=== PATIENT | female | born 2000 | race African-American/Black ===

== ENCOUNTER 2024-04-22 16:19 | Emergency (ER) | payer SELFPAY ==
[~2024-04-22] VITALS: Ht 170.2 cm; Wt 68.0 kg
[2024-04-22 16:34] VITALS: BP 142/94; PULSE 100; RESP 16; O2SAT 100
[2024-04-22] MEDS ORDERED: ONDANSETRON 4MG ODT PO ONE (17:00)
[2024-04-22 17:28] LABS: BASOPHILS % 0.2 % (0.0-2.0); HEMATOCRIT. 43.2 % (36.0-48.0); HEMOGLOBIN. 14.4 g/dL (12.0-16.0); LYMPHOCYTES % 15.5 % (20.0-50.0); MEAN CORPUSCULAR HEMOGLOBIN 29.8 pg (28.0-32.0); MEAN CORPUSCULAR HGB CONC 33.5 g/dL (31.0-37.0); MEAN CORPUSCULAR VOLUME 89.2 fL (81.0-99.0); MEAN PLATELET VOLUME 8.1 fl (7.4-10.4); MONOCYTES % 6.8 % (2.0-8.0); NEUTROPHILS % 77.5 % (40.0-76.0); PLATELET 310 x1000/uL (130-400); RED BLOOD CELL COUNT 4.84 mill/uL (4.2-5.4); RED CELL DISTRIBUTION WIDTH 13.4 % (11.6-14.6)
[2024-04-22 17:35] LABS: CHLORIDE 107 mEq/L (98-107); POTASSIUM 2.9 mEq/L (3.5-5.1); SODIUM 140 mEq/L (136-145)
[2024-04-22 17:36] LABS: CARBON DIOXIDE 16 mEq/L (21-32)
[2024-04-22 17:37] LABS: CALCIUM 10.9 mg/dL (8.7-10.4)
[2024-04-22 17:40] LABS: HCG SCREEN NEGATIVE
[2024-04-22 17:41] LABS: CREATININE 1.1 mg/dL (0.6-1.0); GLUCOSE 99 mg/dL (70-105)
[2024-04-22 17:42] LABS: UREA NITROGEN BLOOD 14 mg/dL (9-23)
[2024-04-22 17:43] LABS: ALANINE AMINOTRANSFERASE 25 IU/L (10-49); ALBUMIN 5.4 g/dL (3.2-4.8); ASPARTATE AMINOTRANSFERASE 39 IU/L (<34)
[2024-04-22 17:44] LABS: BILIRUBIN DIRECT 0.4 mg/dL (<=3.0); BILIRUBIN TOTAL 1.3 mg/dL (0.1-1.0); PROTEIN TOTAL 8.6 g/dL (6.0-8.3)
== END 2024-04-22 17:49 | disposition left against medical advice (07) ==
LOC: ER 16:19
DX: R11.2 Nausea with vomiting, unspecified (principal); R10.13 Epigastric pain
CPT/HCPCS: 99283; 80076; 80048; 84703; 83690; 85025; 36415; Q0162